=== PATIENT | male | born 1980 | race Caucasian/White ===

== ENCOUNTER 2018-11-19 00:50 | Emergency (ER) | payer MEDICAID ==
[~2018-11-19] VITALS: Ht 190.5 cm; Wt 84.1 kg
[~2018-11-19 00:50] MED LIST: ALBU6.7H3 IH; DIPH-423 PO; FAMO-1 PO; METH4TAB3 PO; NO HOME MEDS; PRED20TA PO
[2018-11-19] MEDS ORDERED: epiNEPHrine 1 mg/ml inj IM STA (00:55)
[2018-11-19] MEDS ORDERED: albuterol 2.5 MG/3 ML nebule CONTNEB PRN (00:55)
[2018-11-19] MEDS ORDERED: normal saline 1000ML IV soln IVB ONE (00:55)
[2018-11-19] MEDS ORDERED: epiNEPHrine 1 mg/ml inj ONE (00:55)
[2018-11-19] MEDS ORDERED: methylPREDNISolone sod succ 125mg/2ml vial IV ONE (00:55)
[2018-11-19] MEDS ORDERED: famotidine/PF 10 mg/ml inj IV ONE (01:00)
[2018-11-19] MEDS ORDERED: diphenhydrAMINE 50 mg/ml inj IV ONE (01:00)
[2018-11-19] MEDS ORDERED: magnesium 2GM in 50ml NS 50 ML IV ONE (01:00)
--- NOTE | 2018-11-19 01:20 | NUR ---
Improvement of s/sx, resp more unlabored, anxiety s/sx waning, verbalizing the feeling of improved s/sx
[2018-11-19 01:45] LABS: BASOPHILS # (AUTO) 0.1 X10'3 (0-0.2); BASOPHILS % (AUTO) 0.5 % (0-1); EOSINOPHILS # (AUTO) 0.2 X10'3 (0-0.9); EOSINOPHILS % (AUTO) 2.1 % (0-6); HEMATOCRIT 36.6 % (42.0-52.0); HEMOGLOBIN 12.2 g/dl (14.0-17.9); LYMPHOCYTES # (AUTO) 3.1 X10'3 (1.1-4.8); LYMPHOCYTES % (AUTO) 26.9 % (21-51); MEAN CORPUSCULAR HGB CONC 33.4 g/dL (33.0-36.5); MEAN CORPUSCULAR VOLUME 80.9 FL (78-98); MEAN PLATELET VOLUME 7.5 FL (7.4-10.4); MONOCYTES # (AUTO) 1.5 X10'3 (0-0.9); MONOCYTES % (AUTO) 13.2 % (2-12); NEUTROPHILS # (AUTO) 6.6 X10'3 (1.8-7.7); NEUTROPHILS % (AUTO) 57.3 % (42-75); PLATELET COUNT 288 X10'3 (140-440); RED BLOOD COUNT 4.52 X10'6 (4.70-6.10); RED CELL DISTRIBUTION WIDTH 17.2 % (11.5-14.5); WHITE BLOOD COUNT 11.6 X10'3 (4.5-11.0)
[2018-11-19 01:47] LABS: ALANINE AMINOTRANSFERASE 153 U/L (12-78); ALBUMIN 3.4 G/DL (3.4-5.0); ALBUMIN/GLOBULIN RATIO 1.2 (1.1-1.5); ALKALINE PHOSPHATASE 77 IU/L (46-116); ANION GAP 13 (8-16); ASPARTATE AMINO TRANSFERASE 55 U/L (10-37); BILIRUBIN,TOTAL 0.6 MG/DL (0.1-1.0); BLOOD UREA NITROGEN 16 MG/DL (7-18); BUN/CREATININE RATIO 18.6 (5.4-32.0); CALCIUM 8.4 MG/DL (8.5-10.1); CHLORIDE 101 MMOL/L (99-107); CREATININE 0.86 MG/DL (0.60-1.10); GLUCOSE 148 MG/DL (70-104); POTASSIUM 3.1 MMOL/L (3.5-5.1); SODIUM 141 MMOL/L (135-145); TOTAL CARBON DIOXIDE 26.9 MMOL/L (24-32); TOTAL PROTEIN 6.3 G/DL (6.4-8.2); eGFR > 90 ML/MIN
--- NOTE | 2018-11-19 01:48 | NUR ---
Verbalizing continued improvement, resp even and unlabored, LS more clear. ERP at bedside, patient asking for fluids, ERP ok'd ice chips which were provided to patient.
[2018-11-19 02:58] VITALS: BP 124/59
[2018-11-19] MEDS ORDERED: EPIN0.3P3 IM (03:42)
== END 2018-11-19 04:10 | disposition home or self-care (01) ==
LOC: ER 00:51
DX: T39.311A Poisoning by propionic acid derivatives, accidental (unintentional), initial encounter (principal); R06.02 Shortness of breath; J45.909 Unspecified asthma, uncomplicated; Z88.0 Allergy status to penicillin; Z88.1 Allergy status to other antibiotic agents; Z88.6 Allergy status to analgesic agent; Z79.899 Other long term (current) drug therapy; Y92.89 Other specified places as the place of occurrence of the external cause
CPT/HCPCS: 36415; 71045; 80053; 85025; 93005; 94644; 94760; 96365; 96372; 96375; 99285; J0171; J1200; J2930; J3475; J3490; J7030

== ENCOUNTER 2018-11-28 04:10 | Emergency (ER) | payer MEDICAID ==
[~2018-11-28] VITALS: Ht 190.5 cm; Wt 60.9 kg
[~2018-11-28 04:10] MED LIST changes: +EPIN0.3P3 IM
[2018-11-28 04:13] VITALS: BP 149/91
--- NOTE | 2018-11-28 04:30 | NUR ---
a week ago he got his toe hit by a door and now it is red and swollen
== END 2018-11-28 05:50 | disposition home or self-care (01) ==
LOC: ER 04:11
DX: S92.422A Displaced fracture of distal phalanx of left great toe, initial encounter for closed fracture (principal); J45.909 Unspecified asthma, uncomplicated; Z88.0 Allergy status to penicillin; Z88.1 Allergy status to other antibiotic agents; Z88.6 Allergy status to analgesic agent; Z88.8 Allergy status to other drugs, medicaments and biological substances; Z79.899 Other long term (current) drug therapy; W23.0XXA Caught, crushed, jammed, or pinched between moving objects, initial encounter; Y93.89 Activity, other specified; Y92.143 Cell of prison as the place of occurrence of the external cause; Y99.8 Other external cause status
CPT/HCPCS: 73630; 99283

== ENCOUNTER 2019-01-22 10:27 | Emergency (ER) | payer MEDICAID, OTHER ==
[~2019-01-22] VITALS: Ht 190.5 cm; Wt 88.6 kg
[2019-01-22] MEDS ORDERED: ipratropium/albuterol 3ml nebule NEB STA (10:34)
[2019-01-22] MEDS ORDERED: albuterol 2.5 MG/3 ML nebule NEB ONE ×2 (11:20→12:35)
[2019-01-22] MEDS ORDERED: methylPREDNISolone sod succ 125mg/2ml vial IV ONE (11:20)
[2019-01-22] MEDS ORDERED: normal saline 1000ML IV soln IVB ONE (11:20)
[2019-01-22] MEDS ORDERED: albuterol 2.5 MG/3 ML nebule ONE (12:42)
[2019-01-22] MEDS ORDERED: FLUT100D IH (13:35)
[2019-01-22] MEDS ORDERED: PRED20TA PO (13:35)
[2019-01-22] MEDS ORDERED: ALBU18HF2 INH (13:35)
[2019-01-22 14:00] VITALS: BP 120/60
== END 2019-01-22 14:11 | disposition home or self-care (01) ==
LOC: ER 10:27
DX: J45.901 Unspecified asthma with (acute) exacerbation (principal); Z88.0 Allergy status to penicillin; Z88.1 Allergy status to other antibiotic agents; Z88.6 Allergy status to analgesic agent; Z88.8 Allergy status to other drugs, medicaments and biological substances; Z79.899 Other long term (current) drug therapy
CPT/HCPCS: 71045; 94640; 94760; 96374; 99285; J2930; J7030

== ENCOUNTER 2019-07-26 06:51 | Emergency (ER) | payer MEDICAID, OTHER ==
[~2019-07-26] VITALS: Ht 190.5 cm; Wt 84.1 kg
[~2019-07-26 06:51] MED LIST changes: +ALBU18HF2 INH; +FLUT100D IH
[2019-07-26 06:53] VITALS: BP 127/55
[2019-07-26] MEDS ORDERED: ipratropium/albuterol 3ml nebule NEB ONE (07:00)
[2019-07-26] MEDS ORDERED: predniSONE 20 mg tablet PO ONE (07:00)
[2019-07-26] MEDS ORDERED: ALBU8HFA PO (07:49)
[2019-07-26] MEDS ORDERED: PRED20TA PO (07:49)
== END 2019-07-26 08:02 | disposition home or self-care (01) ==
LOC: ER 06:52
DX: J45.901 Unspecified asthma with (acute) exacerbation (principal); F10.99 Alcohol use, unspecified with unspecified alcohol-induced disorder; Z88.0 Allergy status to penicillin; Z88.1 Allergy status to other antibiotic agents; Z88.6 Allergy status to analgesic agent; Z79.899 Other long term (current) drug therapy; Y90.9 Presence of alcohol in blood, level not specified
CPT/HCPCS: 94640; 94760; 99283; J7512

== ENCOUNTER 2019-12-16 05:51 | Emergency (ER) | payer MEDICAID, OTHER ==
[~2019-12-16] VITALS: Ht 188 cm; Wt 86.0 kg
--- NOTE | 2019-12-16 06:07 | NUR ---
Per MD patient will be evaluated in a regular Emergency Room bed.
--- NOTE | 2019-12-16 06:09 | NUR ---
[facility] REPORTS GETTING OUT OF [facility] 2 DAYS AGO.
[2019-12-16] MEDS ORDERED: albuterol 2.5 MG/3 ML nebule NEB ONE (06:10)
[2019-12-16] MEDS ORDERED: ALBU8HFA PO (07:08)
[2019-12-16] MEDS ORDERED: PRED20TA PO (07:08)
[2019-12-16] MEDS ORDERED: predniSONE 20 mg tablet PO ONE (07:10)
[2019-12-16 07:11] VITALS: BP 116/65
== END 2019-12-16 07:49 | disposition home or self-care (01) ==
LOC: ER 05:52
DX: J45.901 Unspecified asthma with (acute) exacerbation (principal); J06.9 Acute upper respiratory infection, unspecified; Z88.6 Allergy status to analgesic agent; Z88.0 Allergy status to penicillin; Z88.1 Allergy status to other antibiotic agents
CPT/HCPCS: 71045; 94640; 99283; J7512

== ENCOUNTER 2021-11-12 23:50 | Emergency (ER) | payer MEDICAID ==
[~2021-11-12] VITALS: Ht 190.5 cm; Wt 95.5 kg
[2021-11-13] MEDS ORDERED: ondansetron 4mg rapidly disintigrating tab PO ONE (00:05)
[2021-11-13] MEDS ORDERED: magnesium oxide 400mg tablet PO ONE (00:20)
[2021-11-13 00:38] LABS: BASOPHILS # (AUTO) 0.1 X10'3 (0-0.2); BASOPHILS % (AUTO) 1.3 % (0-1); EOSINOPHILS # (AUTO) 0.2 X10'3 (0-0.9); EOSINOPHILS % (AUTO) 3.1 % (0-6); HEMATOCRIT 35.2 % (42.0-52.0); HEMOGLOBIN 12.2 g/dl (14.0-17.9); LYMPHOCYTES % (AUTO) 26.9 % (21-51); MEAN CORPUSCULAR HEMOGLOBIN 28.5 PG (27.0-31.0); MEAN CORPUSCULAR HGB CONC 34.7 g/dL (33.0-36.5); MEAN CORPUSCULAR VOLUME 82.1 FL (78-98); MEAN PLATELET VOLUME 6.9 FL (7.4-10.4); MONOCYTES # (AUTO) 0.6 X10'3 (0-0.9); MONOCYTES % (AUTO) 7.6 % (2-12); NEUTROPHILS # (AUTO) 4.5 X10'3 (1.8-7.7); NEUTROPHILS % (AUTO) 61.1 % (42-75); PLATELET COUNT 350 X10'3 (140-440); RED BLOOD COUNT 4.28 X10'6 (4.70-6.10); RED CELL DISTRIBUTION WIDTH 13.3 % (11.5-14.5); WHITE BLOOD COUNT 7.4 X10'3 (4.5-11.0)
[2021-11-13 01:04] LABS: ALANINE AMINOTRANSFERASE 86 U/L (12-78); ALBUMIN/GLOBULIN RATIO 0.9 (1.1-1.5); ANION GAP 6 (8-16); ASPARTATE AMINO TRANSFERASE 50 U/L (10-37); BILIRUBIN,TOTAL 0.2 MG/DL (0.1-1.0); BLOOD UREA NITROGEN 16 MG/DL (7-18); BUN/CREATININE RATIO 21.1 (5.4-32.0); CALCIUM 8.7 MG/DL (8.5-10.1); CHLORIDE 105 MMOL/L (99-107); CREATININE 0.76 MG/DL (0.60-1.10); ETHANOL < 0.010 GM/DL (0.0-0.010); GLUCOSE 105 MG/DL (70-104); MAGNESIUM 1.8 MG/DL (1.5-2.4); POTASSIUM 4.2 MMOL/L (3.5-5.1); SODIUM 139 MMOL/L (135-145); TOTAL CARBON DIOXIDE 28.1 MMOL/L (24-32); TOTAL PROTEIN 6.2 G/DL (6.4-8.2); eGFR > 90 ML/MIN
[2021-11-13 01:28] VITALS: BP 151/92
== END 2021-11-13 01:20 ==
LOC: ER 23:51
DX: F19.239 Other psychoactive substance dependence with withdrawal, unspecified (principal); J45.909 Unspecified asthma, uncomplicated; F11.90 Opioid use, unspecified, uncomplicated; Z72.89 Other problems related to lifestyle; Z88.6 Allergy status to analgesic agent; Z88.0 Allergy status to penicillin; Z88.8 Allergy status to other drugs, medicaments and biological substances; Z79.899 Other long term (current) drug therapy; Y90.0 Blood alcohol level of less than 20 mg/100 ml
CPT/HCPCS: 36415; 71045; 80053; 80320; 82948; 83735; 84484; 85025; 93005; 99285